=== PATIENT | male | born 1955 | race Caucasian/White ===

== ENCOUNTER 2018-09-19 11:43 | Day surgery (SDC) | payer BC ==
[2018-09-19] MEDS ORDERED: PROPOFOL 20 ML ×2 (14:29→14:56)
[2018-09-19] MEDS ORDERED: FENTAnyl 50 MCG/ML VIAL (14:30)
[2018-09-19] MEDS ORDERED: ONDANSETRON 4 MG INJ IV (14:30)
== END 2018-09-19 15:44 | disposition home or self-care (01) ==
LOC: GIL 11:43
DX: Z12.11 Encounter for screening for malignant neoplasm of colon (principal); D12.4 Benign neoplasm of descending colon; K25.9 Gastric ulcer, unspecified as acute or chronic, without hemorrhage or perforation
CPT/HCPCS: 43239; 88305; 88312